=== PATIENT | female | born 1940 | race Caucasian/White ===

== ENCOUNTER 2021-03-08 10:17 | Observation (INO) ==
[2021-03-08] MEDS ORDERED: DEXTROSE 50% 25 GM/50 ML VIAL IV PRN (11:28)
[2021-03-08] MEDS ORDERED: GLUCAGON 1 MG VIAL IM PRN (11:28)
[2021-03-08 11:59] LABS: Basophils # 0.1 10*3/uL (0.0-0.2); Eosinophils # 0.4 10*3/uL (0.0-0.87); Eosinophils % 3.4 % (0.00-10.9); Hematocrit 43.5 VOL% (35.7-47.0); Hemoglobin 13.7 GM/DL (12.0-16.0); Immature Granulocytes % 0.6 %; Immature Granulocytes Absolute 0.08 #; Lymphocytes # 3.3 10*3/uL (1.4-4.0); Lymphocytes % 26.6 % (21.3-54.2); Mean Corpuscular HGB Conc 31.5 GM/DL (32-36); Mean Corpuscular Volume 96.5 FL (87-102); Mean Platelet Volume 9.1 FL (9.6-12.0); Monocytes % 7.6 % (1.7-12.7); Neutrophils % 60.8 % (38.7-73.9); Platelet Count 291 T/CUMM (130-400); Red Blood Count 4.51 MC/CUMM (3.8-5.5); Red Cell Distribution Width 14.6 % (9.3-17.3); White Blood Count 12.5 T/CUMM (4-12)
[2021-03-08] MEDS ORDERED: ALBUTEROL/IPRATROPIUM 3 ML NEB RESP TX PRN (12:13)
[2021-03-08 12:28] LABS: Calcium 9.1 MG/DL (8.5-10.1); Osmolality,Calculated 279.3 MOS/KG (273-304); Potassium 3.4 MMOL/L (3.5-5.1); Thyroid Stimulating Hormone 3.52 uIU/ml (0.358-3.74)
[2021-03-08] MEDS ORDERED: ALBUTEROL/IPRATROPIUM 3 ML NEB RESP TX SCH (13:00)
[2021-03-08] MEDS ORDERED: LEVALBUTEROL 1.25 MG/3 ML NEB RESP TX PRN (13:38)
[2021-03-08] MEDS ORDERED: LEVALBUTEROL 1.25 MG/3 ML NEB RESP TX ONE (13:44)
[2021-03-08] MEDS: PANTOPRAZOLE 40 MG TABLET PO SCH (15:09)
[2021-03-08] MEDS: methylPREDNISolone SOD SUC 40 MG/1 ML VIAL IV SCH (15:10)
[2021-03-08] MEDS: cefTRIAXone 1,000 MG in SODIUM CHLORIDE 0.9% 100 ML IV SCH (15:10)
[2021-03-08] MEDS ORDERED: AZITHROMYCIN INJ 250 MG in SODIUM CHLORIDE 0.9% 250 ML IV SCH (17:00)
[2021-03-08] MEDS: ursodioL 300 MG CAPSULE PO SCH (20:32)
[2021-03-08] MEDS: APIXABAN 2.5 MG TABLET PO SCH (20:32)
[2021-03-08] MEDS: LEVALBUTEROL 1.25 MG/3 ML NEB RESP TX SCH (20:54)
[2021-03-09] MEDS: methylPREDNISolone SOD SUC 40 MG/1 ML VIAL IV SCH ×2 (00:07→08:42)
[2021-03-09] MEDS: LEVALBUTEROL 1.25 MG/3 ML NEB RESP TX SCH ×2 (01:35→07:14)
[2021-03-09 04:12] LABS: Basophils % 0.3 % (0.0-0.8); Eosinophils % 0.1 % (0.00-10.9); Hematocrit 40.4 VOL% (35.7-47.0); Hemoglobin 13.5 GM/DL (12.0-16.0); Immature Granulocytes % 0.8 %; Immature Granulocytes Absolute 0.08 #; Lymphocytes # 1.4 10*3/uL (1.4-4.0); Lymphocytes % 14.6 % (21.3-54.2); Mean Corpuscular HGB Conc 33.4 GM/DL (32-36); Mean Corpuscular Volume 93.5 FL (87-102); Mean Platelet Volume 9.5 FL (9.6-12.0); Neutrophils % 82.2 % (38.7-73.9); Platelet Count 278 T/CUMM (130-400); Red Blood Count 4.32 MC/CUMM (3.8-5.5); Red Cell Distribution Width 14.3 % (9.3-17.3); White Blood Count 9.4 T/CUMM (4-12)
[2021-03-09 04:31] LABS: Calcium 8.5 MG/DL (8.5-10.1); Osmolality,Calculated 277.5 MOS/KG (273-304); Potassium 3.8 MMOL/L (3.5-5.1); Risk Ratio 3.27; VLDL CHOLESTEROL 14.6 MG/DL
[2021-03-09] MEDS: PANTOPRAZOLE 40 MG TABLET PO SCH (05:53)
[2021-03-09] MEDS ORDERED: LEVOTHYROXINE 100 MCG TABLET PO SCH (06:30)
[2021-03-09] MEDS: cefTRIAXone 1,000 MG in SODIUM CHLORIDE 0.9% 100 ML IV SCH (08:42)
[2021-03-09] MEDS: APIXABAN 2.5 MG TABLET PO SCH (08:42)
[2021-03-09] MEDS: ursodioL 300 MG CAPSULE PO SCH (08:42)
[2021-03-09 08:47] VITALS: BP 148/51
[2021-03-09] MEDS ORDERED: MONTELUKAST CHEW 4 MG TABLET PO SCH (09:00)
[2021-03-09] MEDS ORDERED: EZETIMIBE 10 MG TABLET PO SCH (09:00)
[2021-03-09] MEDS ORDERED: METOPROLOL TARTRATE 25 MG TABLET PO SCH (09:30)
[2021-03-09] MEDS ORDERED: NICOTINE 21 MG/24 HR PATCH TRANSDERM SCH (09:30)
== END 2021-03-09 11:32 | disposition home or self-care (01) ==
LOC: N.5E → SUATTDRO 10:32
PROVIDERS: ADMIT Internal Medicine; ATTEND Internal Medicine

== ENCOUNTER 2021-04-19 14:54 | Inpatient (IN) ==
[2021-04-19] MEDS ORDERED: ALBUTEROL/IPRATROPIUM 3 ML NEB RESP TX STA (15:25)
[2021-04-19] MEDS ORDERED: methylPREDNISolone SOD SUC 125 MG/2 ML VIAL IV STA (15:25)
[2021-04-19 15:42] LABS: Basophils # 0.1 10*3/uL (0.0-0.2); Basophils % 0.5 % (0.0-0.8); Eosinophils # 0.3 10*3/uL (0.0-0.87); Eosinophils % 1.5 % (0.00-10.9); Hematocrit 38.2 VOL% (35.7-47.0); Hemoglobin 12.7 GM/DL (12.0-16.0); Immature Granulocytes % 0.5 %; Immature Granulocytes Absolute 0.08 #; Lymphocytes # 1.6 10*3/uL (1.4-4.0); Lymphocytes % 9.1 % (21.3-54.2); Mean Corpuscular HGB Conc 33.2 GM/DL (32-36); Mean Corpuscular Volume 94.3 FL (87-102); Mean Platelet Volume 9.4 FL (9.6-12.0); Monocytes % 7.9 % (1.7-12.7); Neutrophils % 80.5 % (38.7-73.9); Platelet Count 241 T/CUMM (130-400); Red Blood Count 4.05 MC/CUMM (3.8-5.5); Red Cell Distribution Width 14.9 % (9.3-17.3); White Blood Count 17.7 T/CUMM (4-12)
[2021-04-19] MEDS ORDERED: cefTRIAXone 1,000 MG in SODIUM CHLORIDE 0.9% 100 ML IV STA (15:48)
[2021-04-19 16:16] LABS: Albumin 3.4 G/DL (3.4-5.0); Calcium 8.7 MG/DL (8.5-10.1); Osmolality,Calculated 275.5 MOS/KG (273-304); Potassium 3.6 MMOL/L (3.5-5.1); Total Protein 6.1 G/DL (6.4-8.2)
[2021-04-19] MEDS ORDERED: DEXTROSE 50% 25 GM/50 ML VIAL IV PRN (16:42)
[2021-04-19] MEDS ORDERED: GLUCAGON 1 MG VIAL IM PRN (16:42)
[2021-04-19] MEDS ORDERED: ONDANSETRON 4 MG/2 ML VIAL IV PRN (16:42)
[2021-04-19] MEDS ORDERED: ACETAMINOPHEN 325 MG TABLET PO PRN (16:42)
[2021-04-19] MEDS ORDERED: ENOXAPARIN 40 MG/0.4 ML SYRINGE SUBCUT SCH (17:00)
[2021-04-19 17:42] LABS: Risk Ratio 3.37; Thyroid Stimulating Hormone 2.9 uIU/ml (0.358-3.74); VLDL CHOLESTEROL 14.6 MG/DL
[2021-04-19] MEDS: AZITHROMYCIN INJ 500 MG in SODIUM CHLORIDE 0.9% 250 ML IV SCH (18:43)
[2021-04-19] MEDS: ALBUTEROL 2.5 MG/3 ML NEB RESP TX SCH (19:28)
[2021-04-19] MEDS: MONTELUKAST 10 MG TABLET PO SCH (20:18)
[2021-04-19] MEDS: METOPROLOL SUCCINATE XL 25 MG TABLET PO SCH (20:18)
[2021-04-19] MEDS: APIXABAN 2.5 MG TABLET PO SCH (20:18)
[2021-04-20 06:18] LABS: Basophils # 0.1 10*3/uL (0.0-0.2); Basophils % 0.3 % (0.0-0.8); Eosinophils % 0.1 % (0.00-10.9); Hematocrit 38.2 VOL% (35.7-47.0); Hemoglobin 12.6 GM/DL (12.0-16.0); Immature Granulocytes % 0.7 %; Immature Granulocytes Absolute 0.13 #; Lymphocytes # 1.5 10*3/uL (1.4-4.0); Lymphocytes % 8.4 % (21.3-54.2); Mean Corpuscular Volume 95.5 FL (87-102); Mean Platelet Volume 9.9 FL (9.6-12.0); Monocytes % 3.9 % (1.7-12.7); Neutrophils % 86.6 % (38.7-73.9); Platelet Count 268 T/CUMM (130-400); Red Cell Distribution Width 14.7 % (9.3-17.3); White Blood Count 18.1 T/CUMM (4-12)
[2021-04-20 06:33] LABS: Osmolality,Calculated 280.4 MOS/KG (273-304); Potassium 3.9 MMOL/L (3.5-5.1)
[2021-04-20] MEDS: ALBUTEROL 2.5 MG/3 ML NEB RESP TX SCH ×4 (07:17→19:48)
[2021-04-20] MEDS ORDERED: methylPREDNISolone SOD SUC 40 MG/1 ML VIAL IV SCH (09:00)
[2021-04-20] MEDS: APIXABAN 2.5 MG TABLET PO SCH ×2 (09:30→21:29)
[2021-04-20] MEDS: PANTOPRAZOLE 40 MG TABLET PO SCH (09:30)
[2021-04-20] MEDS: METOPROLOL SUCCINATE XL 25 MG TABLET PO SCH ×2 (09:30→21:29)
[2021-04-20 12:00] LABS: Bacteria,Urine Occasional /HPF (Few); Bilirubin,Urine Negative (Negative); Blood, Urine Negative (Negative); Glucose,Urine (UA) Negative (Negative); Ketones,Urine Negative (Negative); Mucus,Urine Few /LPF (Occasional); Nitrite,Urine Negative (Negative); Protein,Urine Negative; RBC,Urine 2 /HPF (0-4); Squamous Epithelial Cell,Urine Occasional /HPF (0-10); Urine Appearance CLEAR (Clear); Urine Color Yellow (Yellow); Urine Specific Gravity 1.019 (1.001-1.035); Urine Urobilinogen < 2.0 EU/DL (0.2-1.0)
[2021-04-20] MEDS: AZITHROMYCIN INJ 500 MG in SODIUM CHLORIDE 0.9% 250 ML IV SCH (17:53)
[2021-04-20] MEDS: CLORAZEPATE 3.75 MG TABLET PO PRN (17:54)
[2021-04-20] MEDS: cefTRIAXone 1,000 MG in SODIUM CHLORIDE 0.9% 100 ML IV SCH (21:28)
[2021-04-20] MEDS: MONTELUKAST 10 MG TABLET PO SCH (21:29)
[2021-04-21] MEDS: ALBUTEROL 2.5 MG/3 ML NEB RESP TX SCH ×4 (00:47→19:05)
[2021-04-21 06:27] LABS: Basophils # 0.1 10*3/uL (0.0-0.2); Basophils % 0.3 % (0.0-0.8); Eosinophils # 0.1 10*3/uL (0.0-0.87); Eosinophils % 0.4 % (0.00-10.9); Hematocrit 34.9 VOL% (35.7-47.0); Hemoglobin 11.8 GM/DL (12.0-16.0); Immature Granulocytes % 0.5 %; Immature Granulocytes Absolute 0.09 #; Lymphocytes # 2.6 10*3/uL (1.4-4.0); Mean Corpuscular HGB Conc 33.8 GM/DL (32-36); Mean Corpuscular Volume 95.1 FL (87-102); Mean Platelet Volume 9.9 FL (9.6-12.0); Monocytes % 6.5 % (1.7-12.7); Neutrophils % 77.3 % (38.7-73.9); Platelet Count 262 T/CUMM (130-400); Red Blood Count 3.67 MC/CUMM (3.8-5.5); Red Cell Distribution Width 14.8 % (9.3-17.3); White Blood Count 17.4 T/CUMM (4-12)
[2021-04-21 06:45] LABS: Calcium 8.7 MG/DL (8.5-10.1); Potassium 3.3 MMOL/L (3.5-5.1)
[2021-04-21] MEDS: PANTOPRAZOLE 40 MG TABLET PO SCH (09:31)
[2021-04-21] MEDS: CLORAZEPATE 3.75 MG TABLET PO PRN (09:31)
[2021-04-21] MEDS: CETIRIZINE 10 MG TABLET PO PRN (09:31)
[2021-04-21] MEDS: METOPROLOL SUCCINATE XL 25 MG TABLET PO SCH ×2 (09:32→20:16)
[2021-04-21] MEDS: APIXABAN 2.5 MG TABLET PO SCH ×2 (09:32→20:15)
[2021-04-21] MEDS ORDERED: POTASSIUM CHLORIDE 20 MEQ TABLET PO ONE (11:30)
[2021-04-21] MEDS ORDERED: POTASSIUM CHLORIDE 20 MEQ/15 ML UDCUP PO ONE (14:00)
[2021-04-21] MEDS: AZITHROMYCIN INJ 500 MG in SODIUM CHLORIDE 0.9% 250 ML IV SCH (18:54)
[2021-04-21] MEDS: MONTELUKAST 10 MG TABLET PO SCH (20:15)
[2021-04-21] MEDS: MELATONIN 3 MG TABLET PO PRN (20:16)
[2021-04-21] MEDS: ursodioL 300 MG CAPSULE PO SCH (20:19)
[2021-04-21] MEDS: cefTRIAXone 1,000 MG in SODIUM CHLORIDE 0.9% 100 ML IV SCH (20:20)
[2021-04-22] MEDS: ALBUTEROL 2.5 MG/3 ML NEB RESP TX SCH ×4 (00:40→19:00)
[2021-04-22 05:52] LABS: Basophils # 0.1 10*3/uL (0.0-0.2); Basophils % 0.7 % (0.0-0.8); Eosinophils # 0.4 10*3/uL (0.0-0.87); Eosinophils % 3.5 % (0.00-10.9); Hematocrit 37.5 VOL% (35.7-47.0); Immature Granulocytes % 0.5 %; Immature Granulocytes Absolute 0.06 #; Lymphocytes # 2.6 10*3/uL (1.4-4.0); Lymphocytes % 23.9 % (21.3-54.2); Mean Corpuscular Volume 97.7 FL (87-102); Mean Platelet Volume 9.2 FL (9.6-12.0); Monocytes % 7.9 % (1.7-12.7); Neutrophils % 63.5 % (38.7-73.9); Platelet Count 256 T/CUMM (130-400); Red Blood Count 3.84 MC/CUMM (3.8-5.5)
[2021-04-22 06:06] LABS: Calcium 8.5 MG/DL (8.5-10.1); Osmolality,Calculated 278.3 MOS/KG (273-304); Potassium 4.3 MMOL/L (3.5-5.1)
[2021-04-22] MEDS ORDERED: ALBUTEROL/IPRATROPIUM 3 ML NEB RESP TX ONE (07:10)
[2021-04-22] MEDS: LEVOTHYROXINE 100 MCG TABLET PO SCH (07:22)
[2021-04-22] MEDS: METOPROLOL SUCCINATE XL 25 MG TABLET PO SCH ×2 (08:42→20:57)
[2021-04-22] MEDS: ursodioL 300 MG CAPSULE PO SCH ×2 (08:42→20:16)
[2021-04-22] MEDS: PANTOPRAZOLE 40 MG TABLET PO SCH (08:43)
[2021-04-22] MEDS: APIXABAN 2.5 MG TABLET PO SCH ×2 (08:43→20:11)
[2021-04-22] MEDS: AZITHROMYCIN INJ 500 MG in SODIUM CHLORIDE 0.9% 250 ML IV SCH (17:39)
[2021-04-22] MEDS: MONTELUKAST 10 MG TABLET PO SCH (20:11)
[2021-04-22] MEDS: MELATONIN 3 MG TABLET PO PRN (20:11)
[2021-04-22] MEDS: cefTRIAXone 1,000 MG in SODIUM CHLORIDE 0.9% 100 ML IV SCH (20:12)
[2021-04-23] MEDS: ALBUTEROL 2.5 MG/3 ML NEB RESP TX SCH ×2 (00:59→07:41)
[2021-04-23] MEDS: LEVOTHYROXINE 100 MCG TABLET PO SCH (06:10)
[2021-04-23] MEDS: CETIRIZINE 10 MG TABLET PO PRN (08:22)
[2021-04-23] MEDS: CLORAZEPATE 3.75 MG TABLET PO PRN (08:23)
[2021-04-23] MEDS: APIXABAN 2.5 MG TABLET PO SCH (08:23)
[2021-04-23] MEDS: PANTOPRAZOLE 40 MG TABLET PO SCH (08:23)
[2021-04-23] MEDS: METOPROLOL SUCCINATE XL 25 MG TABLET PO SCH (08:23)
[2021-04-23] MEDS: ursodioL 300 MG CAPSULE PO SCH (08:23)
[2021-04-23 11:49] VITALS: BP 125/55
== END 2021-04-23 13:51 | disposition home or self-care (01) | DRG 194 ==
LOC: EDBD → EDUNIT# → N.ED 14:54 → N.EDINP 14:54 → N.3E 16:35 → SUATTDRO 04-21 09:46
PROVIDERS: ADMIT Internal Medicine; ATTEND Emergency Medicine